=== PATIENT | male | born 1950 | race Caucasian/White ===

== ENCOUNTER → 2020-05-02 | Outpatient (CLI) | payer OTHER ==
[~2020-05-02] MED LIST: ASPIRIN EC81 MG PO; ATIVAN1 MG PO; CRESTOR10 MG PO; DEXAMETHASONE 44 MG PO; DULERA 200 MCG8.8 GM INH; FLOMAX 0.4 MG0.4 MG PO; GABAPENTIN400 MG PO; HYDROCODON-ACE1 EAC2 PO; HYDROCODON-ACE1 EAC6 PO; IPRAT-ALBUT 0.5-3 ML NEB; LOPRESSOR 25 MG25 MG PO; NEURONTIN 400400 MG PO; NORVASC 5 MG TAB5 MG PO; OMEPRAZOLE20 M1 PO; PLAVIX 75 MG TA75 MG PO; PROSCAR 5 MG TAB5 MG PO; SPIRIVA HANDIH18 MCG INH; SYNTHROID 100100 MCG PO; VALIUM 5 MG TAB5 MG PO; VENTOLIN HFA 66.7 GM INH; VITAMIN B-121000 MCG PO
== END ==
LOC: KOH-I 10:40
DX: N18.1 Chronic kidney disease, stage 1 (principal); I70.1 Atherosclerosis of renal artery; K59.00 Constipation, unspecified; N20.0 Calculus of kidney
CPT/HCPCS: 74176

== ENCOUNTER 2020-06-09 08:53 | Inpatient (IN) | payer OTHER ==
[~2020-06-09] VITALS: Ht 170.2 cm; Wt 72.1 kg
[~2020-06-09 08:53] MED LIST changes: -ASPIRIN EC81 MG PO; -ATIVAN1 MG PO; -CRESTOR10 MG PO; -DEXAMETHASONE 44 MG PO; -DULERA 200 MCG8.8 GM INH; -FLOMAX 0.4 MG0.4 MG PO; -GABAPENTIN400 MG PO; -HYDROCODON-ACE1 EAC2 PO; -HYDROCODON-ACE1 EAC6 PO; -IPRAT-ALBUT 0.5-3 ML NEB; -LOPRESSOR 25 MG25 MG PO; -PLAVIX 75 MG TA75 MG PO; -PROSCAR 5 MG TAB5 MG PO; -SPIRIVA HANDIH18 MCG INH; -VENTOLIN HFA 66.7 GM INH; -VITAMIN B-121000 MCG PO
[2020-06-09 10:19] LABS: HEMOGLOBIN 14.2 gm/dl (14.0-17.5); RED BLOOD COUNT 4.76 M/UL (4.20-5.50)
[2020-06-09 10:39] LABS: BUN/CREATININE RATIO 29 (0-10)
[2020-06-09] MEDS ORDERED: VENTOLIN HFA 66.7 GM INH (18:22)
[2020-06-10 03:00] LABS: HEMOGLOBIN 13.2 gm/dl (14.0-17.5); RED BLOOD COUNT 4.48 M/UL (4.20-5.50); WHITE BLOOD COUNT 16.5 K/UL (4.5-11.0)
[2020-06-10 03:24] LABS: BUN/CREATININE RATIO 29 (0-10)
[2020-06-13] MEDS ORDERED: HYDROCODON-ACE1 EAC6 PO (09:05)
[2020-06-13] MEDS ORDERED: CRESTOR10 MG PO (09:06)
[2020-06-13] MEDS ORDERED: PLAVIX 75 MG TA75 MG PO (09:09)
[2020-06-13] MEDS ORDERED: LOPRESSOR 25 MG25 MG PO (09:11)
[2020-06-13] MEDS ORDERED: PROSCAR 5 MG TAB5 MG PO (09:11)
[2020-06-13] MEDS ORDERED: FLOMAX 0.4 MG0.4 MG PO (09:12)
[2020-06-13] MEDS ORDERED: ASPIRIN EC81 MG PO (09:12)
[2020-06-13] MEDS ORDERED: VITAMIN B-121000 MCG PO (09:13)
[2020-06-13 11:41] LABS: BUN/CREATININE RATIO 34 (0-10)
[2020-06-14 06:44] LABS: RED BLOOD COUNT 5.48 M/UL (4.20-5.50); WHITE BLOOD COUNT 14.3 K/UL (4.5-11.0)
[2020-06-14 07:04] LABS: BUN/CREATININE RATIO 32 (0-10)
[2020-06-14 07:29] LABS: HEMOGLOBIN 16.2 gm/dl (14.0-17.5)
[2020-06-14 08:14] LABS: CANCER ANTIGEN (CA) 125 26.4 U/mL (Not Estab.); CANCER ANTIGEN (CA) 15-3 16.8 U/mL (0.0-25.0); CEA 1.4 ng/mL (0.0-4.7)
[2020-06-15 05:46] LABS: HEMOGLOBIN 14.6 gm/dl (14.0-17.5); RED BLOOD COUNT 4.97 M/UL (4.20-5.50); WHITE BLOOD COUNT 17.1 K/UL (4.5-11.0)
[2020-06-15 06:07] LABS: BUN/CREATININE RATIO 36 (0-10)
[2020-06-16 04:22] LABS: BUN/CREATININE RATIO 38 (0-10)
[2020-06-18 03:15] LABS: HEMOGLOBIN 13.6 gm/dl (14.0-17.5); RED BLOOD COUNT 4.66 M/UL (4.20-5.50)
[2020-06-18 03:40] LABS: BUN/CREATININE RATIO 48 (0-10)
[2020-06-20] MEDS ORDERED: HYDROCODON-ACE1 EAC2 PO ×2 (08:45→08:51)
[2020-06-20] MEDS ORDERED: DEXAMETHASONE 44 MG PO (08:45)
[2020-06-20] MEDS ORDERED: ATIVAN1 MG PO ×2 (08:45→08:52)
[2020-06-20] MEDS ORDERED: IPRAT-ALBUT 0.5-3 ML NEB (08:45)
[2020-06-20] MEDS ORDERED: DULERA 200 MCG8.8 GM INH (08:56)
[2020-06-20] MEDS ORDERED: SPIRIVA HANDIH18 MCG INH (08:56)
[2020-06-20] MEDS ORDERED: GABAPENTIN400 MG PO (08:58)
== END 2020-06-20 18:27 | DRG 374 ==
LOC: ER1 08:53 → CDU 13:20 → M/S 13:20
PROVIDERS: Family Medicine; Internal Medicine; Physician Assistant Medical; ADMIT Internal Medicine Infectious Disease
PROC: 0DB18ZX Excision of Upper Esophagus, Via Natural or Artificial Opening Endoscopic, Diagnostic (ICD-10-PCS; 2020-06-12)
PROC: B24BZZZ Ultrasonography of Heart with Aorta (ICD-10-PCS; principal; 2020-06-16)
DX: C15.3 Malignant neoplasm of upper third of esophagus (principal); C79.51 Secondary malignant neoplasm of bone; J15.9 Unspecified bacterial pneumonia; J96.01 Acute respiratory failure with hypoxia; J44.0 Chronic obstructive pulmonary disease with (acute) lower respiratory infection; E44.0 Moderate protein-calorie malnutrition; E87.1 Hypo-osmolality and hyponatremia; Z20.822 Contact with and (suspected) exposure to COVID-19; I25.10 Atherosclerotic heart disease of native coronary artery without angina pectoris; N40.0 Benign prostatic hyperplasia without lower urinary tract symptoms; G89.29 Other chronic pain; I12.9 Hypertensive chronic kidney disease with stage 1 through stage 4 chronic kidney disease, or unspecified chronic kidney disease; N18.9 Chronic kidney disease, unspecified; K31.84 Gastroparesis; Z95.5 Presence of coronary angioplasty implant and graft; Z66 Do not resuscitate; E78.5 Hyperlipidemia, unspecified; Z90.49 Acquired absence of other specified parts of digestive tract; Z98.49 Cataract extraction status, unspecified eye; Z87.891 Personal history of nicotine dependence; Z80.3 Family history of malignant neoplasm of breast; Z80.52 Family history of malignant neoplasm of bladder; Z82.49 Family history of ischemic heart disease and other diseases of the circulatory system; Z88.5 Allergy status to narcotic agent; Z88.8 Allergy status to other drugs, medicaments and biological substances; Z98.890 Other specified postprocedural states; Z79.82 Long term (current) use of aspirin; Z68.24 Body mass index [BMI] 24.0-24.9, adult
CPT/HCPCS: ECHO; 36415; 36600; 71045; 72070; 72100; 72156; 72157; 72158; 80048; 80053; 81001; 82378; 82550; 82553; 82803; 83735; 83874; 84439; 84443; 84484; 85025; 85027; 86300; 86301; 86304; 92610; 93005; 93306; 94640; 94664; 94760; 96372; 96374; 96375; 99285; A9577; G0378; J0692; J0696; J1650; J2704; J3010; J7040; U0002